=== PATIENT | female | born 1945 ===

== ENCOUNTER 2017-01-02 18:50 | Emergency (ER) | payer MEDICARE, OTHER ==
[2017-01-02 19:14] VITALS: TEMP 98.1
--- NOTE | 2017-01-02 19:51 | C.PDOC ---
Time Seen by Provider: 01/02/17 19:51 Chief Complaint (Nursing): Weakness/Neurological Deficit Past Medical History Reviewed: Historical Data, Nursing Documentation, Vital Signs Vital Signs: Last Vital Signs Temp 98.1 F 01/02/17 19:10 Pulse 88 01/02/17 19:10 Resp 24 01/02/17 19:10 BP 213/102 H 01/02/17 19:10 Pulse Ox 97 01/02/17 19:51 - Medical History PMH: Depression, Diabetes, HTN, Hypercholesterolemia, Hyperthyroidism, Hypothyroidism Denies: Chronic Kidney Disease Surgical History: Coronary Stent - [facility] Procedures CORONAR ARTERIOGR-2 CATH (07/02/14) IMMOBILIZ/WOUND ATTN NEC (05/28/14) LEFT HEART CARDIAC CATH (07/02/14) LT HEART ANGIOCARDIOGRAM (07/02/14) Family History: States: Unknown Family Hx - Social History Hx Tobacco Use: No Hx Alcohol Use: No Hx Substance Use: No - Immunization History Hx Tetanus Toxoid Vaccination: Yes Hx Influenza Vaccination: Yes (not UTD) Hx Pneumococcal Vaccination: Yes (Not sure) ED Course And Treatment O2 Sat by Pulse Oximetry: 97 NIHSS Stroke Scale - Date/Time Evaluation Performed Date Performed: 01/02/17 Time Performed: 19:48 When Was NIHSS Performed: Baseline - How Severe is the [place]oke Level of Consciousness: 0=Alert LOC to Questions: 0=Both comments correct LOC to commands: 0=Obeys both correctly Best Gaze: 0=Normal Visual: 0=No visual loss Facial: 0=Normal Motor Arm - Left: 0=No drift Motor Arm - Right: 0=No drift Motor Leg - Left: 0=No drift Motor Leg - Right: 0=No drift Limb Ataxia: 0=Absent Sensory: 0=Normal Best Language: 0=No aphasia Dysarthia: 0=Normal articulation Extinction & Inattention (Neglect): 0=Normal, no object Score: 0 Severity Of Stroke: 0= No Stroke Disposition Counseled Patient/Family Regarding: Studies Performed, Diagnosis - Disposition Disposition Time: 19:51
--- NOTE | 2017-01-02 20:03 | C.PDOC ---
History Of Present Illness Patient presents to the ER with a complaint of right sided facial pain that began earlier today. Patient is speaking in complete sentences. Denies fever, chills, nausea, vomiting or vision changes. Time Seen by Provider: 01/02/17 19:51 Chief Complaint (Nursing): Weakness/Neurological Deficit History Per: Patient History/Exam Limitations: no limitations Onset/Duration Of Symptoms: Hrs Current Symptoms Are (Timing): Still Present Severity: Moderate Pain Scale Rating Of: 5 Preceeding Symptoms: None Associated Symptoms: denies: Nausea, Vomiting, Other (Fever, chills) Recent travel outside of the [place]: No Past Medical History Reviewed: Historical Data, Nursing Documentation, Vital Signs Vital Signs: Last Vital Signs Temp 98.1 F 01/02/17 19:10 Pulse 77 01/02/17 21:26 Resp 18 01/02/17 21:26 BP 179/79 H 01/02/17 21:26 Pulse Ox 99 01/02/17 21:26 - Medical History PMH: Depression, Diabetes, HTN, Hypercholesterolemia, Hyperthyroidism, Hypothyroidism Surgical History: Coronary Stent - [facility] Procedures CORONAR ARTERIOGR-2 CATH (07/02/14) IMMOBILIZ/WOUND ATTN NEC (05/28/14) LEFT HEART CARDIAC CATH (07/02/14) LT HEART ANGIOCARDIOGRAM (07/02/14) Family History: States: No Known Family Hx - Social History Hx Tobacco Use: No Hx Alcohol Use: No Hx Substance Use: No - Immunization History Hx Tetanus Toxoid Vaccination: Yes Hx Influenza Vaccination: Yes (not UTD) Hx Pneumococcal Vaccination: Yes (Not sure) Review Of Systems Constitutional: Negative for: Fever, Chills Eyes: Negative for: Vision Change ENT: Positive for: Other (Right sided facial pain) Cardiovascular: Negative for: Chest Pain, Palpitations Gastrointestinal: Negative for: Nausea, Vomiting Genitourinary: Negative for: Dysuria Musculoskeletal: Negative for: Back Pain Skin: Negative for: Rash, Lesions, Jaundice, Bruising Neurological: Negative for: Weakness Psych: Positive for: Anxiety Physical Exam - Physical Exam Appears: Non-toxic Skin: Warm, Dry Head: Normacephalic Eye(s): bilateral: Normal Inspection, Other (Able to completely close eyes, no tearing.) Ear(s): Bilateral: Normal Oral Mucosa: Moist Tongue: Normal Appearing Lips: Normal Appearing Gingiva: No Erythema, No Ulceration Neck: Trachea Midline, Supple Chest: Symmetrical, No Tenderness Cardiovascular: Rhythm Regular, No Murmur Respiratory: No Rales, No Rhonchi, No Wheezing Gastrointestinal/Abdominal: Soft, No Tenderness Back: Normal Inspection Extremity: Normal ROM Extremity: Bilateral: Atraumatic Neurological/Psych: Oriented x3, Normal Speech, Normal Cognition Gait: Steady ED Course And Treatment - Laboratory Results Result Diagrams: 01/02/17 20:15 01/02/17 20:15 O2 Sat by Pulse Oximetry: 97 (Room air) Progress Note: Head CT w/o contrast ordered. Transdate, morphine and zofran administered. Disposition Counseled Patient/Family Regarding: Studies Performed, Diagnosis, Need For Followup, Rx Given - Disposition Referrals: Zohreh Crooks [Staff Provider] - Kelsy Pavon MD [Staff Provider] - Disposition: HOME/ ROUTINE Disposition Time: 19:45 Condition: FAIR Prescriptions: Naproxen [Naprosyn] 1 tab PO BID PRN #25 tab PRN Reason: Pain Instructions: Acute Headache (DC), Trigeminal Neuralgia (ED) Print Language: LATVIAN - Clinical Impression Clinical Impression: Headache, Trigeminal neuralgia of right side of face - Scribe Statement The provider has reviewed the documentation as recorded by the Scribandreina Baumann All medical record entries made by the Scribe were at my direction and personally dictated by me. I have reviewed the chart and agree that the record accurately reflects my personal performance of the history, physical exam, medical decision making, and the department course for this patient. I have also personally directed, reviewed, and agree with the discharge instructions and disposition.
[2017-01-02 20:21] LABS: BASO % 0.3 % (0.0-2.0); EOS # 0.1 K/uL (0.0-0.7); EOS % 1.6 % (0.0-4.0); HEMATOCRIT 44.1 % (34.0-47.0); LYMPH # 2.5 K/uL (1.0-4.3); LYMPH % 29.5 % (20.0-40.0); MEAN CELL VOLUME 87.1 fL (81.0-99.0); MEAN CORPUSCULAR HEMOGLOBIN 28.4 pg (27.0-31.0); MEAN CORPUSCULAR HGB CONC 32.6 g/dL (33.0-37.0); MONO # 0.8 K/uL (0.0-0.8); MONO % 9.4 % (0.0-10.0); RED CELL DISTRIBUTION WIDTH 13.9 % (11.5-14.5); WHITE BLOOD COUNT 8.5 K/uL (4.8-10.8)
[2017-01-02 20:26] LABS: RBC URINE 1 /hpf (0-3); URINE BACTERIA RARE (<OCC); URINE BILIRUBIN NEGATIVE (NEGATIVE); URINE BLOOD NEGATIVE (NEGATIVE); URINE COLOR Straw (YELLOW); URINE GLUCOSE (UA) NORMAL (Normal); URINE KETONE NEGATIVE (NEGATIVE); URINE PROTEIN 1+ mg/dL (NEGATIVE); URINE UROBILINOGEN NORMAL mg/dL (0.2-1.0); WBC URINE 4 /hpf (0-5)
[2017-01-02 20:27] LABS: CHLORIDE 101 mmol/L (98-107); URINE LEUKOCYTE ESTERASE TRACE Leu/uL (Negative)
[2017-01-02 20:28] LABS: SODIUM 138 mmol/L (132-148)
[2017-01-02 20:29] LABS: POTASSIUM 3.8 mmol/L (3.6-5.2)
[2017-01-02] MEDS ORDERED: Labetalol 25mg/5ml Syringe IVP STA (20:29)
[2017-01-02 20:31] LABS: ALB/GLOB RATIO 1.4 (1.0-2.1); ALKALINE PHOSPHATASE 69 U/L (38-126); AST/SGOT 26 U/L (14-36); BILIRUBIN,TOTAL 0.5 mg/dL (0.2-1.3); BLOOD UREA NITROGEN 13 mg/dL (7-17); CARBON DIOXIDE 27 mmol/L (22-30); GFR AFRICAN-AMERICAN > 60; TOTAL PROTEIN 7.5 g/dL (6.3-8.3)
[2017-01-02 20:32] LABS: ALT/SGPT 18 U/L (9-52); CALCIUM 9.1 mg/dl (8.6-10.4); GLUCOSE,RANDOM 102 mg/dL (65-105)
[2017-01-02] MEDS ORDERED: Labetalol 25mg/5ml Syringe ONE (20:34)
--- NOTE | 2017-01-02 21:07 | CT ---
EXAM: CT Head Without Intravenous Contrast CLINICAL HISTORY: 71 years old, female; Condition or disease; Headache; Headache not specified TECHNIQUE: Axial computed tomography images of the head/brain without intravenous contrast. This CT exam was performed using one or more of the following dose reduction techniques: automated exposure control, adjustment of the mA and/or kV according to patient size, and/or use of iterative reconstruction technique. COMPARISON: CT - HEAD W/O CONTRAST 05/09/2015 8:11:08 PM FINDINGS: Brain: Mild atrophy. No intracranial hemorrhage. No mass. No definite edema. Ventricles: No hydrocephalus. Bones/joints: No acute fracture. Soft tissues: Unremarkable. Vasculature: Mild atherosclerotic disease of intracranial arteries. Sinuses: No acute sinusitis. Mastoid air cells: No mastoid effusion. Orbits: Unremarkable as visualized. IMPRESSION: 1. No acute intracranial abnormality. 2. Incidental/non-acute findings are described above.
[2017-01-02 21:27] VITALS: PULSE 77; RESP 18
[2017-01-02 23:32] VITALS: BP 163/88
[2017-01-02 23:34] VITALS: O2SAT 97
--- NOTE | 2017-01-04 01:55 | CARD ---
APPROVED REPORT EKG Measurement Heart [id number] <Conclusion> Normal sinus rhythm Moderate voltage criteria for LVH, may be normal variant Borderline ECG
== END 2017-01-02 23:44 | disposition home or self-care (01) ==
LOC: C.ER 18:50
DX: G50.0 Trigeminal neuralgia (principal)
CPT/HCPCS: 70450; 80053; 81001; 85025; 93005; 96374; 96375; 99285; J1885; J2270; J2405; J2765

== ENCOUNTER 2017-11-30 13:37 | Observation (INO) | payer MEDICARE, OTHER ==
[2017-11-30 14:58] LABS: BASO % 0.5 % (0.0-2.0); EOS # 0.1 K/uL (0.0-0.7); EOS % 2.2 % (0.0-4.0); HEMOGLOBIN 13.1 g/dL (11.0-16.0); MEAN CORPUSCULAR HEMOGLOBIN 29.8 pg (27.0-31.0); MEAN CORPUSCULAR HGB CONC 33.5 g/dL (33.0-37.0); MEAN PLATELET VOLUME 9.1 fL (7.2-11.7); MONO # 0.7 K/uL (0.0-0.8); MONO % 10.6 % (0.0-10.0); NEUT # 3.4 K/uL (1.8-7.0); NEUT % 54.7 % (50.0-75.0); NRBC % 0.1 % (0.0-2.0); RBC 4.38 Mil/uL (3.80-5.20); RED CELL DISTRIBUTION WIDTH 14.4 % (11.5-14.5); WHITE BLOOD COUNT 6.3 K/uL (4.8-10.8)
[2017-11-30 15:05] LABS: PROTHROMBIN TIME 11.1 SECONDS (9.7-12.2)
--- NOTE | 2017-11-30 15:09 | C.PDOC ---
History Of Present Illness 72 y/o female with PMH of HTN, hypothyroid, and cardiac cath x 3 presents to ED with c/o chest pain radiating to left arm associated with tingling developed 1 hour prior to arrival while driving. Describes pain as "pressure." Pt took two advil with improvement of symptoms. Patient also reports persistent dry cough with occasional sob worse at night. Pt was diagnosed with allergies and used inhaler for symptoms. Patient admits to b/l leg swelling. Denies fever, nausea , vomiting, congestion, diarrhea or any other complaints at this time. Time Seen by Provider: 11/30/17 14:22 Chief Complaint (Nursing): Chest Pain History Per: Patient, Security System Technician History/Exam Limitations: no limitations Onset/Duration Of Symptoms: Hrs Current Symptoms Are (Timing): Still Present Quality: "Pain" Past Medical History Reviewed: Historical Data, Nursing Documentation, Vital Signs Vital Signs: Last Vital Signs Temp 97.6 F 11/30/17 13:43 Pulse 72 11/30/17 17:05 Resp 17 11/30/17 17:05 BP 176/80 H 11/30/17 17:05 Pulse Ox 99 11/30/17 17:05 - Medical History PMH: Depression, HTN, Hypercholesterolemia, Hyperthyroidism, Hypothyroidism Surgical History: Coronary Stent - [facility] Procedures CORONAR ARTERIOGR-2 CATH (07/02/14) IMMOBILIZ/WOUND ATTN NEC (05/28/14) LEFT HEART CARDIAC CATH (07/02/14) LT HEART ANGIOCARDIOGRAM (07/02/14) Family History: States: [place] (mother) - Social History Hx Tobacco Use: No Hx Alcohol Use: No Hx Substance Use: No - Immunization History Hx Tetanus Toxoid Vaccination: No Hx Influenza Vaccination: No (not UTD) Hx Pneumococcal Vaccination: No (Not sure) Review Of Systems Except As Marked, All Systems Reviewed And Found Negative. Constitutional: Negative for: Fever, Chills Cardiovascular: Positive for: Chest Pain. Negative for: Light Headedness Respiratory: Positive for: Cough, Shortness of Breath Gastrointestinal: Negative for: Nausea, Vomiting Musculoskeletal: Positive for: Leg Pain (swelling) Skin: Negative for: Rash Neurological: Positive for: Other (Tingling). Negative for: Weakness Physical Exam - Physical Exam Appears: Non-toxic, No Acute Distress Skin: Warm, Dry, No Rash Head: Atraumatic, Normacephalic Eye(s): bilateral: Normal Inspection, EOMI Nose: Normal Oral Mucosa: Moist Neck: Normal ROM, Supple Chest: Symmetrical Cardiovascular: Rhythm Regular Respiratory: Normal Breath Sounds, No Accessory Muscle Use, No Rales, No Rhonchi , No Wheezing Gastrointestinal/Abdominal: Soft, No Tenderness, No Guarding, No Rebound Extremity: Normal ROM, No Pedal Edema, Capillary Refill (<2 seconds) Neurological/Psych: Oriented x3, Normal Speech, Normal Cognition ED Course And Treatment - Laboratory Results Result Diagrams: 11/30/17 14:53 11/30/17 14:53 ECG: Interpreted By Me, Viewed By Me ECG Rhythm: Sinus Rhythm ECG Interpretation: Normal Rate From EC (BPM) O2 Sat by Pulse Oximetry: 98 (RA) Pulse Ox Interpretation: Normal Progress Note: EKG, CXR, Blood work ordered. Aspirin administered . Case discussed with Dr Bhandari, agreed upon plan and admission. vice president investor relations at bedside to evaluated in ER. Disposition - Disposition Disposition: HOSPITALIZED Disposition Time: 16:49 Condition: STABLE - Clinical Impression Clinical Impression: Chest pain, Cough - PA / CAR WORKER / Resident Statement MD/DO has reviewed & agrees with the documentation as recorded. - Scribe Statement The provider has reviewed the documentation as recorded by the Joi Branch All medical record entries made by the Joi were at my direction and personally dictated by me. I have reviewed the chart and agree that the record accurately reflects my personal performance of the history, physical exam, medical decision making, and the department course for this patient. I have also personally directed, reviewed, and agree with the discharge instructions and disposition.
[2017-11-30 15:11] LABS: ALB/GLOB RATIO 1.2 (1.0-2.1); ALBUMIN 3.5 g/dL (3.5-5.0); ALT/SGPT 19 U/L (9-52); AST/SGOT 31 U/L (14-36); BLOOD UREA NITROGEN 24 mg/dL (7-17); GFR AFRICAN-AMERICAN > 60; GFR NON-AFRICAN AMERICAN > 60; LIPASE 123 U/L (23-300)
[2017-11-30 15:23] LABS: B-TYPE NATRIURETIC PEPTIDE 97.2 pg/mL (0-900); CK-MB 1.82 ng/mL (0.0-3.38)
--- NOTE | 2017-11-30 15:48 | RAD ---
PROCEDURE: CHEST RADIOGRAPH, 1 VIEW HISTORY: Shortness of breath COMPARISON: 05/09/2015. FINDINGS: LUNGS: The lungs are well inflated and clear. PLEURA: No pneumothorax or pleural fluid seen. CARDIOVASCULAR: Normal. OSSEOUS STRUCTURES: No significant abnormalities. VISUALIZED UPPER ABDOMEN: Normal. OTHER FINDINGS: None. IMPRESSION: No active pulmonary disease.
[2017-11-30] MEDS ORDERED: Albuterol-Ipratrop 3 mg / 0.5 (3 ml) UD INH PRN (16:54)
[2017-11-30] MEDS ORDERED: Albuterol HFA 90 mcg/actuation (8 g) INH PRN (16:54)
--- NOTE | 2017-11-30 17:05 | CP.PCM.HP ---
History of Present Illness - History of Present Illness History of Present Illness: HPI: Patient is a 72 y/o F who presents to the ED today with "pressure-like" chest pain and "cramping" in her left arm that began simultaneously this morning at 11:00am while she was driving. She states that she went to see her credit reference clerk, Dr. Sanches, in [place] who advised her to come to the ED. She took 2 Advil shortly before her arrival at the ED which provided minimal relief of her pain. She also has experienced SOB and nausea with the chest pain. She has an ongoing cough which she relates to seasonal allergies and a possible diagnosis of asthma (she states she is awaiting confirmation from her kier drier who she will see on the ). The cough is non-productive and associated with a mild headache. She denies fevers, congestion, vomiting, constipation, diarrhea, urinary changes, diaphoresis. 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 Infante did at least one of these caths in 2013); surgery or R knee for arthritis 2 months ago FMH: [place] in mother Allergies: Seasonal, anesthesia Social: Denies use of tobacco, alcohol, drugs Present on Admission - Present on Admission Any Indicators Present on Admission: No Review of Systems - Review of Systems All systems: reviewed and no additional remarkable complaints except (as per HPI ) Past Patient History - Infectious Disease Hx of Infectious Diseases: None - Past Medical History & Family History Past Medical History?: Yes - Past Social History Smoking Status: Never Smoked - CARDIAC Hx Hypercholesterolemia: Yes Hx Hypertension: Yes - PULMONARY Hx Respiratory Disorders: No - NEUROLOGICAL Hx Neurological Disorder: No - HEENT Hx HEENT Problems: No - RENAL Hx Chronic Kidney Disease: No - ENDOCRINE/METABOLIC Hx Hyperthyroidism: Yes Hx Hypothyroidism: Yes - HEMATOLOGICAL/ONCOLOGICAL Hx Blood Disorders: No - INTEGUMENTARY Hx Dermatological Problems: No - MUSCULOSKELETAL/RHEUMATOLOGICAL Hx Falls: No - GASTROINTESTINAL Hx Gastrointestinal Disorders: No - GENITOURINARY/GYNECOLOGICAL Hx Genitourinary Disorders: No - PSYCHIATRIC Hx Depression: Yes Hx Substance Use: No - SURGICAL HISTORY Hx Coronary Stent: Yes - ANESTHESIA Hx Anesthesia: Yes Hx Anesthesia Reactions: No Hx Malignant Hyperthermia: No Meds Allergies/Adverse Reactions: Allergies Allergy/AdvReac Type Severity Reaction Status Date / Time No Known Allergies Allergy Verified 03/01/16 10:26 Physical Exam - Constitutional Appears: Non-toxic, No Acute Distress - Head Exam Head Exam: ATRAUMATIC, NORMAL INSPECTION, NORMOCEPHALIC - Eye Exam Eye Exam: EOMI, Normal appearance, PERRL - ENT Exam ENT Exam: Mucous Membranes Moist - Respiratory Exam Respiratory Exam: Clear to Auscultation Bilateral, NORMAL BREATHING PATTERN. absent: Rales, Rhonchi, Wheezes - Cardiovascular Exam Cardiovascular Exam: RRR, +S1, +S2. absent: Bradycardia, Tachycardia, Diastolic murmur, Gallop, Rubs, Systolic Murmur - GI/Abdominal Exam GI & Abdominal Exam: Normal Bowel Sounds, Soft. absent: Distended, Tenderness - Extremities Exam Extremities exam: Positive for: normal inspection. Negative for: calf tenderness, pedal edema - Neurological Exam Neurological exam: Alert, Oriented x3 - Psychiatric Exam Psychiatric exam: Normal Affect, Normal Mood - Skin Skin Exam: Dry, Intact, Normal Color, Warm Results - Vital Signs Recent Vital Signs: Last Vital Signs Temp 97.6 F 11/30/17 13:43 Pulse 66 11/30/17 16:10 Resp 16 11/30/17 16:10 BP 175/81 H 11/30/17 16:10 Pulse Ox 99 11/30/17 16:10 - Labs Result Diagrams: 11/30/17 14:53 11/30/17 14:53 Labs: Laboratory Results - last 24 hr 11/30/17 11/30/17 11/30/17 14:53 14:53 14:53 WBC 6.3 RBC 4.38 Hgb 13.1 Hct 39.0 MCV 89.0 MCH 29.8 MCHC 33.5 RDW 14.4 Plt Count 238 MPV 9.1 Neut % (Auto) 54.7 Lymph % (Auto) 32.0 [place] % (Auto) 10.6 H Eos % (Auto) 2.2 Baso % (Auto) 0.5 Neut # (Auto) 3.4 Lymph # (Auto) 2.0 [place] # (Auto) 0.7 Eos # (Auto) 0.1 Baso # (Auto) 0.0 PT 11.1 INR 1.0 APTT 31 Sodium 137 Potassium 4.3 Chloride 100 Carbon Dioxide 28 Anion Gap 13 BUN 24 H Creatinine 0.9 Est GFR ( Amer) > 60 Est GFR (Non-Af Amer) > 60 Random Glucose 79 Calcium 9.0 Total Bilirubin 0.5 AST 31 ALT 19 Alkaline Phosphatase 56 Total Creatine Kinase 167 H CK-MB (Mass) 1.82 Troponin I < 0.0120 NT-Pro-B Natriuret Pep 97.2 Total Protein 6.3 Albumin 3.5 D Globulin 2.8 Albumin/Globulin Ratio 1.2 Lipase 123 Assessment & Plan - Assessment and Plan (Free Text) Plan: Chest Pain with History of CAD s/p stent * Cardiology consult (Dr. Infante), help appreciated * Trop negative in ER * ECG: NSR with moderate voltage criteria for LVH, otherwise normal * f/u ROMIs and ECG Q6H * f/u lipid panel * CK: 167 * BNP: 97.2 Meds: * ASA 81 mg PO QD * Continue Toprol 25 mg QD * Continue Crestor 10 mg HS * Continue Lisinopril/HCTZ 20-25 mg QD History of HTN * Continue Lisinopril/HCTZ 20-25 mg QD and Toprol 25 mg QD History of Hypothyroidism * Continue home synthroid 50 mcg QD * f/u TSH, Free T4 History of Asthma * Duonebs PRN * continue Singulair 10 mg * continue ventolin Q6 PRN Prophylaxis * DVT: heparin * GI: not indicated
--- NOTE | 2017-11-30 18:51 | CP.PCM.CON ---
History of Present Illness - History of Present Illness History of Present Illness: Patient seen and evaluated c/o Cough and wheezing Asthma? Will check ECHO Continue ROMIs Cath 2013: Normal coronaries and normal EF HPI: Patient is a 72 y/o F who presents to the ED today with "pressure-like" chest pain and "cramping" in her left arm that began simultaneously this morning at 11:00am while she was driving. She states that she went to see her big data engineer, Dr. Sanches, in [place] who advised her to come to the ED. She took 2 Advil shortly before her arrival at the ED which provided minimal relief of her pain. She also has experienced SOB and nausea with the chest pain. She has an ongoing cough which she relates to seasonal allergies and a possible diagnosis of asthma (she states she is awaiting confirmation from her massage therapist who she will see on the ). The cough is non-productive and associated with a mild headache. She denies fevers, congestion, vomiting, constipation, diarrhea, urinary changes, diaphoresis. 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 Infante did at least one of these caths in 2013); surgery or R knee for arthritis 2 months ago FMH: [place] in mother Allergies: Seasonal, anesthesia Social: Denies use of tobacco, alcohol, drugs Present on Admission - Present on Admission Any Indicators Present on Admission: No Review of Systems - Review of Systems All systems: reviewed and no additional remarkable complaints except (as per HPI ) Physical Exam - Constitutional Appears: Non-toxic, No Acute Distress - Head Exam Head Exam: ATRAUMATIC, NORMAL INSPECTION, NORMOCEPHALIC - Eye Exam Eye Exam: EOMI, Normal appearance, PERRL - ENT Exam ENT Exam: Mucous Membranes Moist - Respiratory Exam Respiratory Exam: Clear to Auscultation Bilateral, NORMAL BREATHING PATTERN. absent: Rales, Rhonchi, Wheezes - Cardiovascular Exam Cardiovascular Exam: RRR, +S1, +S2. absent: Bradycardia, Tachycardia, Diastolic murmur, Gallop, Rubs, Systolic Murmur - GI/Abdominal Exam GI & Abdominal Exam: Normal Bowel Sounds, Soft. absent: Distended, Tenderness - Extremities Exam Extremities exam: Positive for: normal inspection. Negative for: calf tenderness, pedal edema - Neurological Exam Neurological exam: Alert, Oriented x3 - Psychiatric Exam Psychiatric exam: Normal Affect, Normal Mood - Skin Skin Exam: Dry, Intact, Normal Color, Warm Past Patient History - Infectious Disease Hx of Infectious Diseases: None - Past Medical History & Family History Past Medical History?: Yes - Past Social History Smoking Status: Never Smoked - CARDIAC Hx Hypercholesterolemia: Yes Hx Hypertension: Yes - PULMONARY Hx Respiratory Disorders: No - NEUROLOGICAL Hx Neurological Disorder: No - HEENT Hx HEENT Problems: No - RENAL Hx Chronic Kidney Disease: No - ENDOCRINE/METABOLIC Hx Hyperthyroidism: Yes Hx Hypothyroidism: Yes - HEMATOLOGICAL/ONCOLOGICAL Hx Blood Disorders: No - INTEGUMENTARY Hx Dermatological Problems: No - MUSCULOSKELETAL/RHEUMATOLOGICAL Hx Falls: No - GASTROINTESTINAL Hx Gastrointestinal Disorders: No - GENITOURINARY/GYNECOLOGICAL Hx Genitourinary Disorders: No - PSYCHIATRIC Hx Depression: Yes Hx Substance Use: No - SURGICAL HISTORY Hx Coronary Stent: Yes - ANESTHESIA Hx Anesthesia: Yes Hx Anesthesia Reactions: No Hx Malignant Hyperthermia: No Meds Allergies/Adverse Reactions: Allergies Allergy/AdvReac Type Severity Reaction Status Date / Time clopidogrel [From Plavix] AdvReac paralized Verified 11/30/17 21:40 legs and muscle spasms - Medications Medications: Current Medications Albuterol (Ventolin Hfa 90 Mcg/Actuation (8 G)) 1 puff INH RQ6 PRN PRN Reason: Wheezing Albuterol/Ipratropium (Duoneb 3 Mg/0.5 Mg (3 Ml) Ud) 3 ml INH RQ2 PRN PRN Reason: Shortness of Breath Aspirin (Ecotrin) 81 mg PO DAILY DOROTHY Heparin Sodium (Porcine) (Heparin) 5,000 units SC Q12 DOROTHY Hydrochlorothiazide (Hydrodiuril) 25 mg PO DAILY DOROTHY Levothyroxine Sodium (Synthroid) 50 mcg PO DAILY@0630 DOROTHY Lisinopril (Zestril) 20 mg PO DAILY DOROTHY Metoprolol Succinate (Toprol Xl) 25 mg PO DAILY DOROTHY Montelukast Sodium (Singulair) 10 mg PO HS DOROTHY Rosuvastatin Calcium (Crestor) 10 mg PO HS DOROTHY Results - Vital Signs Recent Vital Signs: Last Vital Signs Temp 97.6 F 11/30/17 13:43 Pulse 72 11/30/17 17:05 Resp 17 11/30/17 17:05 BP 176/80 H 11/30/17 17:05 Pulse Ox 98 11/30/17 18:49 - Labs Result Diagrams: 12/01/17 03:18 12/01/17 03:18 Labs: Laboratory Results - last 24 hr 11/30/17 11/30/17 11/30/17 14:53 14:53 14:53 WBC 6.3 RBC 4.38 Hgb 13.1 Hct 39.0 MCV 89.0 MCH 29.8 MCHC 33.5 RDW 14.4 Plt Count 238 MPV 9.1 Neut % (Auto) 54.7 Lymph % (Auto) 32.0 [place] % (Auto) 10.6 H Eos % (Auto) 2.2 Baso % (Auto) 0.5 Neut # (Auto) 3.4 Lymph # (Auto) 2.0 [place] # (Auto) 0.7 Eos # (Auto) 0.1 Baso # (Auto) 0.0 PT 11.1 INR 1.0 APTT 31 Sodium 137 Potassium 4.3 Chloride 100 Carbon Dioxide 28 Anion Gap 13 BUN 24 H Creatinine 0.9 Est GFR ( Amer) > 60 Est GFR (Non-Af Amer) > 60 Random Glucose 79 Calcium 9.0 Total Bilirubin 0.5 AST 31 ALT 19 Alkaline Phosphatase 56 Total Creatine Kinase 167 H CK-MB (Mass) 1.82 Troponin I < 0.0120 NT-Pro-B Natriuret Pep 97.2 Total Protein 6.3 Albumin 3.5 D Globulin 2.8 Albumin/Globulin Ratio 1.2 Lipase 123 Assessment & Plan - Assessment and Plan (Free Text) Assessment: Chest Pain and dyspnea * Trop negative * ECG: NSR with moderate voltage criteria for LVH, otherwise normal * f/u ROMIs and ECG Q6H * f/u lipid panel * CK: 167 * BNP: 97.2 Meds: * ASA 81 mg PO QD * Continue Toprol 25 mg QD * Continue Crestor 10 mg HS * Continue Lisinopril/HCTZ 20-25 mg QD History of HTN * Continue Lisinopril/HCTZ 20-25 mg QD and Toprol 25 mg QD History of Hypothyroidism * Continue home synthroid 50 mcg QD * f/u TSH, Free T4 History of Asthma * Duonebs PRN * continue Singulair 10 mg * continue ventolin Q6 PRN Prophylaxis * DVT: heparin * GI: not indicated Does not appear to be cardiac ischemia. Likely Asthma exacerbation Will review ECHO prior to further cardiac work up
[2017-11-30 18:56] VITALS: RESP 20; O2SAT 97
[2017-11-30 21:30] LABS: CK-MB 1.54 ng/mL (0.0-3.38)
[2017-12-01 03:22] LABS: BASO % 0.5 % (0.0-2.0); EOS # 0.1 K/uL (0.0-0.7); EOS % 1.7 % (0.0-4.0); HEMOGLOBIN 13.4 g/dL (11.0-16.0); LYMPH # 1.9 K/uL (1.0-4.3); LYMPH % 33.9 % (20.0-40.0); MEAN CELL VOLUME 89.4 fL (81.0-99.0); MEAN CORPUSCULAR HEMOGLOBIN 30.4 pg (27.0-31.0); MEAN PLATELET VOLUME 9.1 fL (7.2-11.7); MONO # 0.6 K/uL (0.0-0.8); NEUT % 53.9 % (50.0-75.0); RBC 4.4 Mil/uL (3.80-5.20); RED CELL DISTRIBUTION WIDTH 14.3 % (11.5-14.5); WHITE BLOOD COUNT 5.6 K/uL (4.8-10.8)
[2017-12-01 03:49] LABS: BLOOD UREA NITROGEN 19 mg/dL (7-17); CALCIUM 8.9 mg/dl (8.6-10.4); GFR AFRICAN-AMERICAN > 60; GFR NON-AFRICAN AMERICAN 55; HDL CHOLESTEROL 61 mg/dL (30-70)
[2017-12-01 03:58] LABS: LDL CHOLESTEROL 116 mg/dL (0-129)
[2017-12-01 04:00] LABS: CK-MB 1.25 ng/mL (0.0-3.38)
[2017-12-01 05:30] VITALS: BP 124/75; PULSE 62; TEMP 97.6
[2017-12-01] MEDS ORDERED: Levothyroxine 50 MCG TAB PO SCH (06:30)
--- NOTE | 2017-12-01 08:50 | CP.PCM.PN ---
<Artie Edgar - Last Filed: 12/01/17 20:41> Subjective - Date & Time of Evaluation Date of Evaluation: 12/01/17 Time of Evaluation: 08:50 - Subjective Subjective: PGY-[address] Infante's Cardio service: Pt seen and examined at bedside. Nursing reports no acute events overnight. Denies chest pain or shortness of breath. For stress test, ECHO today. Objective - Vital Signs/Intake and Output Vital Signs (last 24 hours): Temp Pulse Resp BP Pulse Ox 97.6 F 62 20 124/75 97 12/01/17 04:20 12/01/17 04:20 12/01/17 04:20 12/01/17 04:20 12/01/17 04:20 - Medications Medications: Current Medications Albuterol/Ipratropium (Duoneb 3 Mg/0.5 Mg (3 Ml) Ud) 3 ml INH RQ2 PRN PRN Reason: Shortness of Breath Aspirin (Ecotrin) 81 mg PO DAILY [facility] Heparin Sodium (Porcine) (Heparin) 5,000 units SC Q12 [facility] Last Admin: 11/30/17 21:30 Dose: 5,000 units Hydrochlorothiazide (Hydrodiuril) 25 mg PO DAILY [facility] Levothyroxine Sodium (Synthroid) 50 mcg PO DAILY@0630 [facility] Last Admin: 12/01/17 06:00 Dose: 50 mcg Lisinopril (Zestril) 20 mg PO DAILY [facility] Metoprolol Succinate (Toprol Xl) 25 mg PO DAILY [facility] Rosuvastatin Calcium (Crestor) 10 mg PO HS [facility] Last Admin: 11/30/17 21:30 Dose: 10 mg - Labs Labs: 12/01/17 03:18 12/01/17 03:18 PT 11.1 SECONDS (9.7-12.2) 11/30/17 14:53 INR 1.0 11/30/17 14:53 APTT 31 SECONDS (21-34) 11/30/17 14:53 - Additional Findings Additional findings: - Constitutional Appears: Non-toxic, No Acute Distress - Head Exam Head Exam: ATRAUMATIC, NORMAL INSPECTION, NORMOCEPHALIC - Eye Exam Eye Exam: EOMI, Normal appearance, PERRL - ENT Exam ENT Exam: Mucous Membranes Moist - Respiratory Exam Respiratory Exam: Clear to Auscultation Bilateral, NORMAL BREATHING PATTERN. absent: Rales, Rhonchi, Wheezes - Cardiovascular Exam Cardiovascular Exam: RRR, +S1, +S2. absent: Bradycardia, Tachycardia, Diastolic murmur, Gallop, Rubs, Systolic Murmur - GI/Abdominal Exam GI & Abdominal Exam: Normal Bowel Sounds, Soft. absent: Distended, Tenderness - Extremities Exam Extremities exam: Positive for: normal inspection. Negative for: calf tenderness, pedal edema - Neurological Exam Neurological exam: Alert, Oriented x3 - Psychiatric Exam Psychiatric exam: Normal Affect, Normal Mood - Skin Skin Exam: Dry, Intact, Normal Color, Warm Assessment and Plan - Assessment and Plan (Free Text) Plan: Chest Pain and dyspnea Observe on tele Trop negative x 3 EKG: NSR with moderate voltage criteria for LVH, otherwise normal Lipid panel: HDL 61, LDL 116, T Chol 212, TG 85 CK: 167 BNP: 97.2 Meds: ASA 81 mg PO QD Continue Toprol 25 mg QD Continue Crestor 10 mg HS Continue Lisinopril/HCTZ 20-25 mg QD History of HTN Well controlled Continue Lisinopril/HCTZ 20-25 mg QD and Toprol 25 mg QD Normal stress, echo. Clear for d/c per cardio. F/u w cardio as outpatient. Artie Edgar PGY-[address] Infante <Shravan Infante - Last Filed: 12/02/17 06:26> Objective - Vital Signs/Intake and Output Vital Signs (last 24 hours): Temp Pulse Resp BP Pulse Ox 97.6 F 62 20 124/75 97 12/01/17 04:20 12/01/17 16:00 12/01/17 04:20 12/01/17 04:20 12/01/17 04:20 - Labs Labs: 12/01/17 03:18 12/01/17 03:18 PT 11.1 SECONDS (9.7-12.2) 11/30/17 14:53 INR 1.0 11/30/17 14:53 APTT 31 SECONDS (21-34) 11/30/17 14:53 Assessment and Plan - Assessment and Plan (Free Text) Plan: Patient seen and evaluated personally by me Plan of care d/w the medical policy specialist and as documented
[2017-12-01] MEDS ORDERED: Metoprolol Succinate 25 mg XL Tab PO SCH (10:00)
--- NOTE | 2017-12-01 16:31 | CARD ---
APPROVED REPORT Protocol: LEXISCAN Test Type: LEXISCAN STRESS Test Indications: CHEST PAIN Medications: LIST Target HR: 149 bpm Resting ECG: normal Resting Heart Rate: 69 bpm Resting Blood Pressure: 128/80mmHg submaximum (85%): 127 bpm TEST SUMMARY PREINFSNHYPERV.13:[id number]/80.0. INFUSIONDOSE 100:300.00.01.065/.0. KFEDHHRLV27:[id number]/80.0. PROCEDURE Pharmacologic stress testing was performed using 0.4mg per 5ml of regadenoson given intravenously over 7-10 seconds. Reversal agent aminophyline 100 mg, given intravenously for Headache. POST EXERCISE Reason for Termination: Protocol Completed Target HR: No Max HR: 65 bpm 60% of Maximum Predicted HR: 149 bpm Exercise duration: 00:30 min:sec, 0 Stage Exercise capacity: 1.0METs Max Blood Pressure: 128/80mmHg Blood Pressure response to exercise: normal resting BP - appropriate response Heart Rate response to exercise: appropriate Chest Pain: No, none Angina index: 0 Arrhythmia: No, none ST Change: No, none Deviation: 0 mm INTERPRETATION Stress EKG Conclusion: NEGATIVE LEXISCAN STRESS TEST NORMAL BP RESPONSE TO LEXISCAN NUCLEAR STUDIES TO BE READ SEPARATELY EXAM: Myocardial Perfusion STRESS/REST Imaging Protocol The imaging protocol used to acquire images was Stress Tc-99m/rest Tc-99m 1 day Stress Spect myocardial perfusion imaging was performed in supine position 41 minutes following the injection of 13.2 mCi of Tc-99 Myoview. Gated Rest Spect was performed 40 minutes after intravenous 32.4 mCi Tc-99 Myoview injection. The images were gated to evaluate regional wall motion and calculate ventricular ejection fraction.Images were reconstructed using backfilter projection method in short horizontal and verticle long axis. Spect slices were generated. RESTING DATA EDV24.69boIU9.50L/min ESV4.00mlMyocardial Mass65.00g Av. Heart Rate72.00bpm EF83.00% STRESS DATA EDV31.59vgZF5.90L/min ESV3.00mlMyocardial Mass76.00g EF90.00% Regional WT score at stress:1.00 Regional WM score at stress:0.00 Summed WT score at stress:2.00 Av. Heart Rate69.00bpmSummed WM score at stress:0.00 LV Perf. Quant 17 Seg. SSS2.00 17 Seg. SRS0.00 17 Seg. SDS2.00 Stress Defect Extent (% LAD)4.40Rest Defect Extent (% LAD)0.00Rev. Defect Extent (% LAD)4.40 Stress Defect Extent (% LCX)15.00Rest Defect Extent (% LCX)6.30Rev. Defect Extent (% LCX)0.00 Stress Defect Extent (% RCA)0.00Rest Defect Extent (% RCA)0.00Rev. Defect Extent (% RCA)0.00 Stress Defect Extent (% LYSSA)6.30Rest Defect Extent (% LYSSA)1.10Rev. Defect Extent (% LYSSA)3.70 Other Information Quality:Good IMPRESSION Normal Myocardial Perfusion exercise stress study Left Ventricle LV Function:Left ventricle systolic function is normal. The Ejection Fraction is >70%. Metabolism/Perfusion There are no perfusion/metabolism defects. Conclusion 1. Normal Lexiscan nuclear stress test. Normal EF
--- NOTE | 2017-12-01 17:33 | CP.PCM.DIS ---
Provider - Provider Date of Admission: 11/30/17 15:53 Attending physician: Chadwick Bhandari Jr, MD Consults: Cards: Naresh Time Spent in preparation of Discharge (in minutes): 45 Hospital Course - Lab Results Lab Results: Most Recent Lab Values WBC 5.6 K/uL (4.8-10.8) 12/01/17 03:18 RBC 4.40 Mil/uL (3.80-5.20) 12/01/17 03:18 Hgb 13.4 g/dL (11.0-16.0) 12/01/17 03:18 Hct 39.3 % (34.0-47.0) 12/01/17 03:18 MCV 89.4 fL (81.0-99.0) 12/01/17 03:18 MCH 30.4 pg (27.0-31.0) 12/01/17 03:18 MCHC 34.0 g/dL (33.0-37.0) 12/01/17 03:18 RDW 14.3 % (11.5-14.5) 12/01/17 03:18 Plt Count 217 K/uL (130-400) 12/01/17 03:18 MPV 9.1 fL (7.2-11.7) 12/01/17 03:18 Neut % (Auto) 53.9 % (50.0-75.0) 12/01/17 03:18 Lymph % (Auto) 33.9 % (20.0-40.0) 12/01/17 03:18 [place] % (Auto) 10.0 % (0.0-10.0) 12/01/17 03:18 Eos % (Auto) 1.7 % (0.0-4.0) 12/01/17 03:18 Baso % (Auto) 0.5 % (0.0-2.0) 12/01/17 03:18 Neut # (Auto) 3.0 K/uL (1.8-7.0) 12/01/17 03:18 Lymph # (Auto) 1.9 K/uL (1.0-4.3) 12/01/17 03:18 [place] # (Auto) 0.6 K/uL (0.0-0.8) 12/01/17 03:18 Eos # (Auto) 0.1 K/uL (0.0-0.7) 12/01/17 03:18 Baso # (Auto) 0.0 K/uL (0.0-0.2) 12/01/17 03:18 PT 11.1 SECONDS (9.7-12.2) 11/30/17 14:53 INR 1.0 11/30/17 14:53 APTT 31 SECONDS (21-34) 11/30/17 14:53 Sodium 139 mmol/L (132-148) 12/01/17 03:18 Potassium 3.8 mmol/L (3.6-5.2) 12/01/17 03:18 Chloride 103 mmol/L (98-107) 12/01/17 03:18 Carbon Dioxide 30 mmol/L (22-30) 12/01/17 03:18 Anion Gap 10 (10-20) 12/01/17 03:18 BUN 19 mg/dL (7-17) H 12/01/17 03:18 Creatinine 1.0 mg/dL (0.7-1.2) 12/01/17 03:18 Est GFR ( Amer) > 60 12/01/17 03:18 Est GFR (Non-Af Amer) 55 12/01/17 03:18 Random Glucose 93 mg/dL (65-105) 12/01/17 03:18 Calcium 8.9 mg/dl (8.6-10.4) 12/01/17 03:18 Total Bilirubin 0.5 mg/dL (0.2-1.3) 11/30/17 14:53 AST 31 U/L (14-36) 11/30/17 14:53 ALT 19 U/L (9-52) 11/30/17 14:53 Alkaline Phosphatase 56 U/L (38-126) 11/30/17 14:53 Total Creatine Kinase 124 U/L (30-135) 12/01/17 03:18 CK-MB (Mass) 1.25 ng/mL (0.0-3.38) 12/01/17 03:18 Troponin I < 0.0120 ng/mL (0.00-0.120) 12/01/17 03:18 NT-Pro-B Natriuret Pep 97.2 pg/mL (0-900) 11/30/17 14:53 Total Protein 6.3 g/dL (6.3-8.3) 11/30/17 14:53 Albumin 3.5 g/dL (3.5-5.0) D 11/30/17 14:53 Globulin 2.8 gm/dL (2.2-3.9) 11/30/17 14:53 Albumin/Globulin Ratio 1.2 (1.0-2.1) 11/30/17 14:53 Triglycerides 85 mg/dL (0-149) D 12/01/17 03:18 Cholesterol 212 mg/dL (0-199) H 12/01/17 03:18 LDL Cholesterol Direct 116 mg/dL (0-129) 12/01/17 03:18 HDL Cholesterol 61 mg/dL (30-70) 12/01/17 03:18 Lipase 123 U/L (23-300) 11/30/17 14:53 Free T4 0.99 ng/dL (0.78-2.19) 12/01/17 03:18 TSH 3rd Generation 5.08 mIU/L (0.46-4.68) H 12/01/17 03:18 - Hospital Course Hospital Course: Patient is a 72 y/o F who presents to the ED today with "pressure-like" chest pain and "cramping" in her left arm that began simultaneously this morning at 11 :00am while she was driving. She states that she went to see her materials development engineer, Dr. Sanches, in [place] who advised her to come to the ED. She took 2 Advil shortly before her arrival at the ED which provided minimal relief of her pain. She also has experienced SOB and nausea with the chest pain. She has an ongoing cough which she relates to seasonal allergies and a possible diagnosis of asthma (she states she is awaiting confirmation from her roping tender who she will see on the ). The cough is non-productive and associated with a mild headache. She denies fevers, congestion, vomiting, constipation, diarrhea, urinary changes, diaphoresis. Patient went for stress test and echo. Was seen by Dr. Infante who does not think her pain is cardiac in nature. Patient was discharged Discharge Exam - Head Exam Head Exam: ATRAUMATIC, NORMAL INSPECTION, NORMOCEPHALIC - Eye Exam Eye Exam: EOMI, Normal appearance, PERRL Pupil Exam: NORMAL ACCOMODATION, PERRL - Respiratory Exam Respiratory Exam: Clear to PA & Lateral, NORMAL BREATHING PATTERN, UNREMARKABLE - GI/Abdominal Exam GI & Abdominal Exam: Normal Bowel Sounds, Soft. absent: Distended, Tenderness - Neurological Exam Neurological exam: Alert, CN II-XII Intact, Normal Gait, Oriented x3, Reflexes Normal - Psychiatric Exam Psychiatric exam: Normal Affect, Normal Mood - Skin Skin Exam: Dry, Intact, Normal Color, Warm Discharge Plan - Discharge Medications Prescriptions: Atorvastatin [Lipitor] 20 mg PO DAILY #30 tab - Follow Up Plan Condition: STABLE Disposition: HOME/ ROUTINE Instructions: Heart Healthy Diet, Chest Pain (DC), Atorvastatin Additional Instructions: Please follow up with your primary care provider in 7-10 days. Please bring the list of medications I have provided for you. If you do not have a primary care doctor you can walk in to our clinic. I have attached the information Please follow up with your materials development engineer in 7-10 days. If you would like to follow up with the materials development engineer who saw you while you were in the hospital you are more than welcome to. I have attached his information Please come back to the ED if symptoms return. Referrals: Shravan Infante MD [Staff Provider] - [facility] [Outside]
--- NOTE | 2017-12-01 18:05 | CARD ---
APPROVED REPORT EXAM: Two-dimensional and M-mode echocardiogram with Doppler and color Doppler. INDICATION CAD Chest Pain RISK FACTORS Hypertension 2D DIMENSIONS IVSd1.1 (0.7-1.1cm)LVDd4.0 (3.9-5.9cm) PWd1.1 (0.7-1.1cm)LVDs2.4 (2.5-4.0cm) FS (%) 40.5 %LVEF (%)71.8 (>50%) M-Mode DIMENSIONS Left Atrium (MM)3.85 (2.5-4.0cm)Aortic Root3.61 (2.2-3.7cm) Aortic Cusp Exc.2.16 (1.5-2.0cm) Mitral Valve MV E Ugcvomrr08.1cm/sMV A Avqafzrm11.9cm/sE/A ratio0.8 TDI E/Lateral E'0.0E/Medial E'0.0 Tricuspid Valve TR Peak Ndudvfsl132eq/sTR Peak Gr.29mmHg LEFT VENTRICLE The left ventricle is normal size. There is normal left ventricular wall thickness. The left ventricular function is normal. The left ventricular ejection fraction is within the normal range. There is normal LV segmental wall motion. Transmitral Doppler flow pattern is Grade I-abnormal relaxation pattern. RIGHT VENTRICLE The right ventricle is normal size. There is normal right ventricular wall thickness. The right ventricular systolic function is normal. ATRIA The left atrium size is normal. The right atrium size is normal. AORTIC VALVE The aortic valve is moderately thickened. No aortic regurgitation is present. There is no aortic valvular stenosis. MITRAL VALVE The mitral valve is mildly thickened. There is no mitral valve stenosis. There is no mitral valve regurgitation noted. TRICUSPID VALVE There is mild tricuspid regurgitation. GREAT VESSELS The aortic root is normal in size. <Conclusion> The left ventricle is normal size. There is normal left ventricular wall thickness. The left ventricular function is normal. The left ventricular ejection fraction is within the normal range. There is normal LV segmental wall motion. Transmitral Doppler flow pattern is Grade I-abnormal relaxation pattern.
--- NOTE | 2017-12-01 21:22 | CARD ---
APPROVED REPORT EKG Measurement Heart [id number] <Conclusion> Normal sinus rhythm Minimal voltage criteria for LVH, may be normal variant Borderline ECG
--- NOTE | 2017-12-01 21:53 | CARD ---
APPROVED REPORT EKG Measurement Heart [id number] <Conclusion> Normal sinus rhythm Moderate voltage criteria for LVH, may be normal variant Borderline ECG
--- NOTE | 2017-12-02 20:33 | CARD ---
APPROVED REPORT EKG Measurement Heart [id number] [place] [id number] [id number] <Conclusion> Sinus bradycardia Minimal voltage criteria for LVH, may be normal variant Nonspecific ST abnormality Abnormal ECG
== END 2017-12-01 18:11 | disposition home or self-care (01) ==
LOC: C.ER 13:37 → C.9E 15:53 → C.6T 17:56
PROVIDERS: ADMIT Internal Medicine; ATTEND Internal Medicine
DX: R07.9 Chest pain, unspecified (principal); I10 Essential (primary) hypertension; E03.9 Hypothyroidism, unspecified; E78.00 Pure hypercholesterolemia, unspecified; F32.9 Major depressive disorder, single episode, unspecified; E05.90 Thyrotoxicosis, unspecified without thyrotoxic crisis or storm; Z95.5 Presence of coronary angioplasty implant and graft; Z85.72 Personal history of non-Hodgkin lymphomas; M17.0 Bilateral primary osteoarthritis of knee; Z79.51 Long term (current) use of inhaled steroids; Z82.49 Family history of ischemic heart disease and other diseases of the circulatory system; Z88.4 Allergy status to anesthetic agent; J45.909 Unspecified asthma, uncomplicated
CPT/HCPCS: 36415; 71045; 78452; 80048; 80053; 80061; 82550; 82553; 83690; 83880; 84439; 84443; 84484; 85025; 85610; 85730; 93005; 93017; 93306; 96372; 99285; A9502; G0378; J1644; J2785